=== PATIENT | male | born 1995 | race African-American/Black ===

== ENCOUNTER 2021-02-26 14:17 | Emergency (ER) | payer BC, SELFPAY ==
[2021-02-26 14:27] VITALS: BP 146/89; PULSE 85; RESP 16; TEMP 36.6; O2SAT 100
--- NOTE | 2021-02-26 15:04 | ED.URI ---
HPI - URI/Sore Throat General Chief Complaint: Upper Respiratory Infection Stated Complaint: sore throat Source: patient and RN notes reviewed Mode of arrival: ambulatory History of Present Illness HPI Narrative: This is a 25-year-old male that presented to urgent care today with complaints of a sore throat. According to patient his girlfriend's child was recently diagnosed with hand feet and mouth. Patient notes that he did have a fever of 100.6 with one episode of nausea body aches. Patient has been vaccinated. He took cold and flu medication to relieve his symptoms at home. The patient denies SOB, CP, palpitation, extremity numbness, lightheadedness, dizziness, constipation, diarrhea, chills, or fever. Strep negative patient is will be treated off her symptoms along MD elicited complaint: fever and sore throat Related Data Allergies Allergy/AdvReac Type Severity Reaction Status Date / Time No Known Allergies Allergy Unknown Verified 04/20/19 06:56 Review of Systems Review of Systems: A 14 organ system Review of Systems was performed and pertinent positives included in the HPI, otherwise remaining ROS is negative. [facility] Family History Family History (Updated 02/26/21 @ 15:07 by ТАТЬЯНА Stewart) Other Family history non-contributory Exam Narrative: GENERAL: This is a well-nourished, well-developed patient, in no apparent distress. HEAD: normocephalic, atraumatic. EYES: PERRL. Sclera clear/white. Vision is grossly intact. EARS: External ears normal, auditory canals clear and without drainage, TMs normal without perforation. Hearing grossly intact. NOSE: External nose normal with no obvious nasal discharge, nares without redness, no rhinorrhea. THROAT: Mucous membranes moist, posterior pharynx Pharyngeal erythema; palatal petechiae, enlarged tonsils NECK: Neck supple, non-tender without lymphadenopathy, masses or thyromegaly. CARDIOVASCULAR: Regular rate and rhythm without murmurs, gallops, or rubs. RESPIRATORY: Clear to auscultation. Breath sounds equal bilaterally. No wheezes, rales, or rhonchi. GASTROINTESTINAL: Abdomen soft, non-tender, nondistended. Bowel sounds are active. No hepato-splenomegaly, or palpable masses. No guarding. SKIN: warm, intact with no suspicious lesions or rash, good texture and turgor. NEURO: awake, alert, and oriented to person, place and time. There were no obvious focal neurologic abnormalities. Steady gait EXTREMITIES: Normal range of motion. No edema. No calf tenderness. Negative Homans sign bilaterally. BACK: Nontender without deformity or crepitance. No flank tenderness. Course Course Emergency Course: Patient discharged home with Augmentin and lidocaine rinse Vital Signs Vital signs: Vital Signs Temperature 97.9 F 02/26/21 14:27 Pulse Rate 85 02/26/21 14:27 Respiratory Rate 16 02/26/21 14:27 Blood Pressure 146/89 H 02/26/21 14:27 Pulse Oximetry 100 02/26/21 14:27 Temperature 97.9 F 02/26/21 14:27 Pulse Rate 85 02/26/21 14:27 Respiratory Rate 16 02/26/21 14:27 Blood Pressure 146/89 H 02/26/21 14:27 Pulse Oximetry 100 02/26/21 14:27 MDM - URI/Sore Throat Differential Diagnosis Differential diagnosis: Likely upper respiratory infection, otitis media, viral infection and pharyngitis Lab Data Attestation: I reviewed the patient's lab results. Labs: Strep Screen Presumptive Negative *(Reference Range: Negative)* Discharge Plan Discharge Clinical Impression: Pharyngitis Qualifiers: Pharyngitis/tonsillitis etiology: Coxsackie virus Qualified Code(s): B08.5 - Enteroviral vesicular pharyngitis Patient Disposition: Home, Self-Care Condition: Stable Instructions: Antibiotic Form, Pharyngitis (ED) Additional Instructions: -Eat things that are easy to swallow, like tea or soup, or popsicles to suck on. -Oral rinses such as: Salt water gargles and/or may use topical
== END 2021-02-26 15:07 | disposition home or self-care (01) ==
PROVIDERS: Emergency Provider Nurse Practitioner
DX: J02.9 Acute pharyngitis, unspecified (principal); B97.11 Coxsackievirus as the cause of diseases classified elsewhere
CPT/HCPCS: 87081; 87880; 99213; G0463

== ENCOUNTER 2021-02-27 03:29 | Emergency (ER) | payer BC, SELFPAY ==
[2021-02-27 03:37] VITALS: BP 155/84; PULSE 84; RESP 17; TEMP 37.1; O2SAT 99
[2021-02-27] MEDS: SODIUM CHLORIDE 0.9% IV 1,000 ML 999 ML IV CONT (04:30)
[2021-02-27] MEDS: KETOROLAC 15 MG/ML VIAL (*BKC) IV PUSH (04:31)
[2021-02-27] MEDS: DEXAMETHASONE SOD PHOS INJ 4 MG/ML VIAL 10 MG IV PUSH (04:31)
[2021-02-27 04:38] VITALS: BP 118/81; PULSE 80; RESP 16; O2SAT 97
--- NOTE | 2021-02-27 04:45 | ED.URI ---
HPI - URI/Sore Throat General Chief Complaint: Upper Respiratory Infection Stated Complaint: worsening pharyngitis Time Seen by Provider: 02/27/21 03:57 History of Present Illness HPI Narrative: Patient presents with sore throat. Patient presents sore throat for the past couple days getting progressively worse. States he has not been able to eat or drink anything due to the pain so he came in for evaluation. Reports his girlfriend kid who lives with him was diagnosed with wxhc-hmdl-acy-mouth disease. He reports he also has a rash on his hands and feet he had an associated fever a couple days ago which is now resolved. Related Data Allergies Allergy/AdvReac Type Severity Reaction Status Date / Time No Known Allergies Allergy Unknown Verified 02/27/21 03:44 Review of Systems Review of Systems: CONSTITUTIONAL: Reported resolved or fever EYES: Denies visual changes, redness, or discharge. ENT: Denies rhinorrhea, congestion, or otalgia. CARDIOVASCULAR: Denies chest pain, palpitations, or edema. RESPIRATORY: Denies cough or dyspnea. GASTROINTESTINAL: Denies abdominal pain, nausea, vomiting, or diarrhea. GENITOURINARY: Denies dysuria or hematuria. SKIN: Reports rash on hands and feet itching MUSCULOSKELETAL: Denies back pain, joint pain, or myalgia. NEUROLOGIC: Denies headache, numbness, dizziness, or weakness. PSYCHIATRIC: Denies anxiety or depression. All systems reviewed & are unremarkable except as noted in HPI and below PMFSH Family History Family History Other Family history non-contributory Exam Narrative: GENERAL: Well-appearing, well-nourished, and in no acute distress. HEAD: Normocephalic, atraumatic. EYES: PERRLA and EOMI. ENT: Nares clear, no rhinorrhea or epistaxis. Mucous membranes moist. Ulcerations with erythema in the posterior pharynx no uvula deviation NECK: Supple. No masses. No JVD CHEST: Clear to auscultation. No respiratory distress. No wheezes rales or rhonchi HEART: Regular rate and rhythm. No murmur heard. Normal peripheral pulses. EXTREMITIES: Normal range of motion. No edema. SKIN: Warm, dry, scant pustules noted on the hands and feet bilaterally NEURO: No focal deficits. Alert and oriented x3. PSYCH: Normal mood and affect. Course Reevaluation(s) Reevaluation #1: Patient reports feeling much improved still having like to eat and hydrate at home. Date: 02/27/21 Time: 06:07 Vital Signs Vital signs: Vital Signs Temperature 37.1 C 02/27/21 03:37 Pulse Rate 84 02/27/21 03:37 Respiratory Rate 17 02/27/21 03:37 Blood Pressure 155/84 H 02/27/21 03:37 Pulse Oximetry 99 02/27/21 03:37 Temperature 37.1 C 02/27/21 03:37 Pulse Rate 80 02/27/21 06:23 Respiratory Rate 16 02/27/21 06:23 Blood Pressure 116/71 02/27/21 06:23 Pulse Oximetry 97 02/27/21 06:23 MDM - URI/Sore Throat MDM Narrative Medical decision making narrative: H&P as above, vss, pt looks clinically well, exam with rash and ulceration in the oropharynx consistent with ynha-dueo-qfu-mouth disease, labs/img considered. symptomatic relief available as needed, patient was treated with fluids NSAIDs and steroids on reevaluation pt continues to looks clinically well reporting large improvement in symptoms. Suspect iuzz-kfhc-ucm-mouth disease, dns peritonsillar abscess, airway compromise, severe sepsis. plan to tx/monitor as op w/ pcm f/u findings/plan discussed with pt, pt agree/comfortable with plan, return precautions given Discharge Plan Discharge Clinical Impression: Hand, foot and mouth disease (HFMD) Instructions: Hand, Foot, and Mouth Disease (ED) Additional Instructions: Please return if your symptoms worsen or fail to improve. If you develop a fever, can not eat/drink anything or if you have any other concerns. Prescriptions: New prednisone 50 mg tablet 50 mg PO DAILY Qty: 4 RF: 0 No Action amoxicillin-pot clavulanate
[2021-02-27 06:23] VITALS: BP 116/71; PULSE 80; RESP 16; O2SAT 97
== END 2021-02-27 06:24 | disposition home or self-care (01) ==
PROVIDERS: Emergency Provider Emergency Medicine
DX: B08.4 Enteroviral vesicular stomatitis with exanthem (principal)
CPT/HCPCS: 96361; 96374; 96375; 99284; J1100; J1885; J7030

== ENCOUNTER 2021-03-02 15:17 | Emergency (ER) | payer BC, SELFPAY ==
[2021-03-02 16:05] VITALS: BP 129/85; PULSE 85; RESP 16; TEMP 35.9; O2SAT 100
--- NOTE | 2021-03-02 16:12 | ED.GENADULT ---
HPI - General Adult General Stated complaint: Work Note, Hands feet,Mouth Time Seen by Provider: 03/02/21 16:12 Source: patient and RN notes reviewed Mode of arrival: ambulatory Limitations: no limitations History of Present Illness HPI narrative: 25-year-old male presents to the [facility] without complaints but is looking for a work note. Was seen here on February 26, diagnosed with pharyngitis. Had to go to the ER on February 27 due to not being able to eat or drink, felt dehydrated at that time was diagnosed with ydba-miua-fht-mouth. States that he still does not feel completely normal with like a couple of days off of work. Is now able to eat or drink, is afebrile. Patient appears nontoxic. Related Data Allergies Allergy/AdvReac Type Severity Reaction Status Date / Time No Known Allergies Allergy Unknown Verified 02/27/21 03:44 Review of Systems Review of Systems: All systems reviewed & are unremarkable except as noted in HPI and below Constitutional: Constitutional: Reports no additional constitutional complaints, Denies chills and Denies fever(s) Eyes: Eyes: Reports no additional eye complaints ENT: Reports as per HPI Comments: Sores in his mouth Cardiovascular: Cardiovascular: Reports no additional cardiovascular complaints and Denies chest pain Respiratory: Respiratory: Reports no additional respiratory complaints, Denies cough and Denies dyspnea Gastrointestinal: Gastrointestinal: Reports no additional gastrointestinal complaints, Denies abdominal pain, Denies nausea and Denies vomiting Musculoskeletal: Musculoskeletal: Reports no additional musculoskeletal complaints Integumentary/Breasts: Skin/Breast: Reports as per HPI and Reports rash Comments: Rash to his hands and feet, plantar and palmar aspects Neurologic: Reports system reviewed and no additional complaints, except as documented Psychiatric: Psychiatric: Reports no additional psychiatric complaints Allergic/Immunologic: Allergic/Immunologic: Reports no additional allergic/immunologic complaints [facility] Past Medical History Medical History (Updated 03/02/21 @ 17:49 by Laura Aldridge) No significant medical problems Surgical History Surgical History (Updated 03/02/21 @ 17:49 by Laura Aldridge) No significant past surgical history Family History Family History Other Family history non-contributory Social History Social History (Updated 03/02/21 @ 17:49 by Larua Aldridge) Living arrangements: with family Occupation/Education: occupation Additional occupation/education comments: [employer] Comments At the time of my signature, I reviewed and agree with the nursing past medical, surgical, social, and family history. There is no relevant family history pertinent to the patient complaint. Exam Const: General: healthy appearing, no acute distress and alert Nutritional Appearance: well nourished Orientation/consciousness: patient oriented x3 Limitations: no limitations HENMT: Head: normal to inspection Ears: external ears normal, TM's normal bilaterally and EAC's normal Other: Blisters throughout the mouth and tongue posterior pharynx. Eyes: Pupils: Equal, round and reactive pupils present Neck: Neck: normal visual inspection, no lymphadenopathy and no meningeal signs Chest: Chest palpation & inspection: normal inspection of the chest Resp: Effort & Inspection: normal respiratory effort Auscultation: clear to auscultation bilaterally Cardio: Rate: regular rate Rhythm: regular rhythm Back/Spine/Pelvis: Back: no CVA tenderness Skin: General skin exam: normal color Rashes: no rashes Other: Blistery rash palmar aspect of hand Neuro: General: patient oriented x3, moves all extremities, no meningeal signs and no focal motor deficits Speech: normal speech Gait exam (Neuro): Normal gait present Extrem: General: normal to inspection Psych: Appearance: grossly nan
== END 2021-03-02 16:34 | disposition home or self-care (01) ==
PROVIDERS: Emergency Provider Nurse Practitioner
DX: B08.4 Enteroviral vesicular stomatitis with exanthem (principal)
CPT/HCPCS: 99211; G0463

== ENCOUNTER 2021-12-08 17:16 | Emergency (ER) | payer BC, SELFPAY ==
[2021-12-08 17:22] VITALS: BP 155/95; PULSE 106; RESP 18; TEMP 36.3; O2SAT 100
--- NOTE | 2021-12-08 17:36 | ED.LOWEXIN ---
HPI - Extremity Injury (Lower) General Chief Complaint: Extremity Problem,Nontraumatic Stated Complaint: left leg pain Time Seen by Provider: 12/08/21 17:36 Source: patient, RN notes reviewed and old records reviewed Mode of arrival: ambulatory Limitations: no limitations History of Present Illness HPI Narrative: 26-year-old male presents to the [facility] with complaints of left leg pain since waking up this morning. Denies any injuries. No swelling, redness. Patient was concerned when his left leg started going numb, of been intermittent. Denies any back pain or abdominal pain. Patient states he works in the heat and does not drink enough water. Related Data Home Medications Medication Instructions Recorded Confirmed No Home Medications 12/08/21 12/08/21 Allergies Allergy/AdvReac Type Severity Reaction Status Date / Time No Known Allergies Allergy Unknown Verified 12/08/21 17:25 Review of Systems Review of Systems: All systems reviewed & are unremarkable except as noted in HPI and below Constitutional: Constitutional: Reports no additional constitutional complaints, Denies chills and Denies fever(s) Eyes: Eyes: Reports no additional eye complaints ENT: Reports system reviewed and no additional complaints, except as documented Cardiovascular: Cardiovascular: Reports no additional cardiovascular complaints Respiratory: Respiratory: Reports no additional respiratory complaints Gastrointestinal: Gastrointestinal: Reports no additional gastrointestinal complaints Musculoskeletal: Musculoskeletal: Reports as per HPI and Reports muscle cramps (Left leg) Integumentary/Breasts: Skin/Breast: Reports system reviewed and no additional complaints, except as docu Neurologic: Reports system reviewed and no additional complaints, except as documented Psychiatric: Psychiatric: Reports no additional psychiatric complaints Allergic/Immunologic: Allergic/Immunologic: Reports no additional allergic/immunologic complaints [facility] Past Medical History Medical History (Updated 12/08/21 @ 17:46 by Laura Aldridge APRN) No significant medical problems Surgical History Surgical History No significant past surgical history Family History Family History Other Family history non-contributory Social History Social History Additional occupation/education comments: [employer] Comments At the time of my signature, I reviewed and agree with the nursing past medical, surgical, social, and family history. There is no relevant family history pertinent to the patient complaint. Exam Const: General: healthy appearing, no acute distress and alert Nutritional Appearance: well nourished Orientation/consciousness: patient oriented x3 Limitations: no limitations HENMT: Head: normal to inspection Ears: external ears normal Eyes: General: appearance normal, both eyes and all related structures Pupils: Equal, round and reactive pupils present Neck: Neck: normal visual inspection, no lymphadenopathy and no meningeal signs Chest: Chest palpation & inspection: normal inspection of the chest Resp: Effort & Inspection: normal respiratory effort and no use of accessory muscles Auscultation: clear to auscultation bilaterally, no crackles, no rales, no rhonchi and no wheezes Cardio: Rate: regular rate Rhythm: regular rhythm GI: GI Palp: Yes Soft to palpation and No Tenderness to palpation present (GI) Back/Spine/Pelvis: Cervical Spine: normal cervical lordosis Thoracic/Lumbar Spine: thoracic and lumbar spine normal to inspection Skin: General skin exam: normal color Rashes: no rashes Wounds: no wounds Neuro: General: patient oriented x3, moves all extremities, no meningeal signs and no focal motor deficits Cranial nerves: Yes Equal, round and reactive pupil
== END 2021-12-08 17:53 | disposition home or self-care (01) ==
PROVIDERS: Emergency Provider Nurse Practitioner
DX: M79.662 Pain in left lower leg (principal)
CPT/HCPCS: 99211; G0463

== ENCOUNTER 2022-06-27 13:36 | Emergency (ER) | payer BC, SELFPAY ==
[2022-06-27 13:59] VITALS: BP 115/74; PULSE 115; RESP 18; TEMP 37.2; O2SAT 99
--- NOTE | 2022-06-27 14:26 | ED.NAVMDI ---
HPI - Nausea/Vomiting/Diarrhea General Chief complaint: Nausea/Vomiting/Diarrhea Stated complaint: upper resp Time Seen by Provider: 06/27/22 13:48 History of Present Illness HPI Narrative: 26-year-old male presented emergency room complaints of nausea vomiting and diarrhea since yesterday. Also complaining of lower abdominal cramping reports multiple episodes of nonbilious nonbloody vomiting and loose stools. Patient also endorses diffuse back pain. Denies any injury or trauma. Denies fevers. Related Data Allergies Allergy/AdvReac Type Severity Reaction Status Date / Time No Known Allergies Allergy Unknown Verified 12/08/21 17:25 Review of Systems Review of Systems: CONSTITUTIONAL: Denies fever, chills, or sweats. EYES: Denies visual changes, redness, or discharge. ENT: Denies rhinorrhea, congestion, sore throat, or otalgia. CARDIOVASCULAR: Denies chest pain, palpitations, or edema. RESPIRATORY: Denies cough or dyspnea. GASTROINTESTINAL: Reports lower abdominal pain, nausea, vomiting, and diarrhea. GENITOURINARY: Denies dysuria or hematuria. SKIN: Denies rash or itching. MUSCULOSKELETAL: Denies back pain, joint pain, or myalgia. NEUROLOGIC: Denies headache, numbness, dizziness, or weakness. PSYCHIATRIC: Denies anxiety or depression. [facility] Past Medical History Medical History No significant medical problems Surgical History Surgical History No significant past surgical history Family History Family History Other Family history non-contributory Social History Social History Additional occupation/education comments: [employer] Exam Narrative: GENERAL: Well-appearing, well-nourished, no physical limitations, and in no acute distress. HEAD: Normocephalic, atraumatic. EYES: Conjunctivae normal, PERRLA and EOMI. CHEST: Clear to auscultation. No respiratory distress. No wheezes rales or rhonchi. HEART: Regular rate and rhythm. No murmur heard. Normal peripheral pulses. ABDOMEN: Soft, lower abdominal tenderness, nondistended, normal active bowel sounds. Negative heel strike. Negative psoas and obturator signs BACK: No CVA tenderness; No cervical/thoracic/lumbar tenderness, step-offs, bony abnormality; FROM EXTREMITIES: Normal range of motion. No edema. No clubbing or cyanosis SKIN: Warm, dry, no rash. No noted wounds NEURO: No focal deficits. Alert and oriented x3. MAEW. CN's II-XI intact bilaterally, normal gait PSYCH: Cooperative. Normal mood and affect. Course Course Emergency Course: 1600: On reexamination patient states his symptoms have resolved. Vital Signs Vital signs: Vital Signs Temperature 37.2 C 06/27/22 13:59 Pulse Rate 115 H 06/27/22 13:59 Respiratory Rate 18 06/27/22 13:59 Blood Pressure 115/74 06/27/22 13:59 Pulse Oximetry 99 06/27/22 13:59 Oxygen Delivery Room Air 06/27/22 13:59 Temperature 37.2 C 06/27/22 13:59 Pulse Rate 115 H 06/27/22 13:59 Respiratory Rate 18 06/27/22 13:59 Blood Pressure 115/74 06/27/22 13:59 Pulse Oximetry 99 06/27/22 13:59 Oxygen Delivery Room Air 06/27/22 13:59 MDM - Nausea/Vomiting/Diarrhea Lab Data 06/27/22 14:23 06/27/22 14:23 Labs: Lab Results 06/27/22 06/27/22 06/27/22 Range/Units 14:07 14:23 14:23 WBC 7.8 (4.5-10.0) K/mm3 RBC 5.49 (4.6-6.20) M/mm3 Hgb 16.3 (14.0-18.0) g/dL Hct 49.5 (42.0-52.0) % MCV 90.2 (80-100) fl MCH 29.7 (26-34) pg MCHC 32.9 (32-36) g/dl RDW 12.7 (11.5-14.5) % Plt Count 170 (150-375) k/mm3 MPV 11.4 H (7.4-10.4) fl Immature Gran % (Auto) 0.6 H (0-0.5) % Neut % (Auto) 87.5 H (45.5-73.1) % Lymph % (Auto) 4.4 L (18.3-44.2) % [place] % (Auto) 7.0 (2.6-8.5) % Eos %
[2022-06-27 14:48] LABS: Basophils Percent Auto 0.1 % (0.2-1.2); Eosinophils Percent Auto 0.4 % (0-4.4); Hematocrit 49.5 % (42.0-52.0); Hemoglobin 16.3 g/dL (14.0-18.0); Immature Granulocyte Absolute 0.05 K/mm3 (0.00-0.031); Immature Granulocyte Percent A 0.6 % (0-0.5); Lymphocytes Absolute Auto 0.34 K/mm3 (0.9-3.2); Lymphocytes Percent Auto 4.4 % (18.3-44.2); Mean Corpuscular HGB Conc 32.9 g/dl (32-36); Mean Corpuscular Hemoglobin 29.7 pg (26-34); Mean Corpuscular Volume 90.2 fl (80-100); Mean Platelet Volume 11.4 fl (7.4-10.4); Monocytes Absolute Auto 0.6 K/mm3 (0.1-0.6); Neutrophils Absolute Auto 6.8 K/mm3 (1.3-6.7); Neutrophils Percent Auto 87.5 % (45.5-73.1); Platelet Count Result 170 k/mm3 (150-375); Red Blood Count 5.49 M/mm3 (4.6-6.20); Red Cell Distribution Width 12.7 % (11.5-14.5); White Blood Count 7.8 K/mm3 (4.5-10.0)
[2022-06-27 14:56] LABS: Influenza A QL RT-PCR Negative (Negative); Influenza B QL RT-PCR Negative (Negative); RSV RNA, RT-PCR Negative (Negative); SARS-CoV-2 RNA PCR Negative
[2022-06-27 14:58] LABS: Alanine Aminotransferase 34 U/L (6-50); Albumin Level 4.9 g/dL (3.5-5.1); Alkaline Phosphatase 53 U/L (38-126); Anion Gap 11 mmol/L (8-16); Aspartate Amino Transferase 28 U/L (17-59); Bilirubin,Total 1.1 mg/dL (0.2-1.3); Blood Urea Nitrogen 14 mg/dL (9-20); Calcium 9.5 mg/dL (8.4-10.2); Carbon Dioxide 26 mmol/L (22-30); Chloride 105 mmol/L (98-107); Estimated CRCL calculation 109 ml/min; Estimated Glomerular Filt Rate > 60; Glucose 123 mg/dL (65-110); Lactic Acid Reflex 2.3 mmol/L (0.7-2.0); Lipase 43 U/L (23-300); Potassium 3.7 mmol/L (3.4-5.0); Sodium 142 mmol/L (137-145)
[2022-06-27] MEDS: KETOROLAC 30 MG/ML VIAL (*BKC) IV PUSH (15:00)
[2022-06-27] MEDS: SODIUM CHLORIDE 0.9% IV 1,000 ML 999 ML IV CONT (15:01)
[2022-06-27] MEDS: ONDANSETRON INJ 4 MG/2 ML VIAL IV PUSH (15:01)
[2022-06-27 17:46] LABS: Reflex Lactic Acid Yes or No Add Lactic
--- NOTE | 2022-07-06 12:39 | PC.NURSE ---
LATE ENTRY This note is being entered to document information to the patient's record. The following information was omitted on [06/27/22], by [Vidhi Aaron Rn]. NS stop time 1600
--- NOTE | 2022-07-06 16:36 | PC.NURSE ---
LATE ENTRY This note is being entered to document information to the patient's record. The following information was omitted on 06/29/22, by [Mckenzie Garcia] NORMAL SALINE STOPPED WITH ZERO LEFT IN CONTAINER
== END 2022-06-27 16:30 | disposition home or self-care (01) ==
PROVIDERS: Emergency Provider Nurse Practitioner Family
DX: K52.9 Noninfective gastroenteritis and colitis, unspecified (principal); Z20.822 Contact with and (suspected) exposure to COVID-19
CPT/HCPCS: 36415; 80053; 83605; 83690; 85025; 87637; 96361; 96374; 96375; 99284; J1885; J2405; J7030

== ENCOUNTER 2023-04-02 00:59 | Emergency (ER) | payer BC, SELFPAY ==
[2023-04-02 01:02] VITALS: BP 138/82; PULSE 81; RESP 18; TEMP 36.7; O2SAT 100
--- NOTE | 2023-04-02 01:04 | ED.GENADULT ---
HPI - General Adult General Chief complaint: Unspecified Stated complaint: sore throat Time Seen by Provider: 04/02/23 01:02 Source: patient Mode of arrival: ambulatory Limitations: no limitations History of Present Illness HPI narrative: patient is a pleasant 27-year-old male who presents emergency department today ambulatory with steady gait for evaluation of a sore throat that started last night. Patient states that his daughter recently had ghxs-yutz-aqfuo. He states that his right ear hurts worse than the left. Denies fever or chills. Denies any cough, nausea, vomiting, headache, dizziness. He denies having any rash. Related Data Allergies Allergy/AdvReac Type Severity Reaction Status Date / Time No Known Allergies Allergy Unknown Verified 12/08/21 17:25 Review of Systems Review of Systems: CONSTITUTIONAL: Denies fever, chills, or sweats. EYES: Denies visual changes, redness, or discharge. ENT: +sore throat, right ear pain. Denies rhinorrhea, congestion. CARDIOVASCULAR: Denies chest pain, palpitations, or edema. RESPIRATORY: Denies cough or dyspnea. GASTROINTESTINAL: Denies abdominal pain, nausea, vomiting, or diarrhea. GENITOURINARY: Denies dysuria or hematuria. SKIN: Denies rash or itching. MUSCULOSKELETAL: Denies back pain, joint pain, or myalgia. NEUROLOGIC: Denies headache, numbness, or weakness. PSYCHIATRIC: Denies anxiety or depression. All systems reviewed & are unremarkable except as noted in HPI and below PMFSH Past Medical History Medical History No significant medical problems Surgical History Surgical History No significant past surgical history Family History Family History Other Family history non-contributory Social History Social History Living arrangements: with family Occupation/Education: occupation Additional occupation/education comments: [employer] Exam Narrative: GENERAL: Well-appearing, well-nourished, and in no acute distress. HEAD: Normocephalic, atraumatic. EYES: PERRLA and EOMI. ENT: Nares clear, no rhinorrhea or epistaxis. posterior oropharyngeal erythema/swelling. tonsillar swelling R>L. there are white lesions/sores noted to right tonsil. controlling secretions. swallowing with ease. no hot potato voice. no lesions noted to the tongue/lips/palate. bilateral ear fluid level noted and fullnes-no bulging TM or perforation noted. NECK: Supple. CHEST: Clear to auscultation. No respiratory distress. HEART: Regular rate and rhythm. No murmur heard. Normal peripheral pulses. EXTREMITIES: Normal range of motion. No edema. SKIN: Warm, dry, no rash. NEURO: No focal deficits. Alert and oriented x3. CN II-XII grossly intact PSYCH: Normal mood and affect. Course Vital Signs Vital signs: Vital Signs Temperature 98.1 F 04/02/23 01:02 Pulse Rate 81 04/02/23 01:02 Respiratory Rate 18 04/02/23 01:02 Blood Pressure 138/82 04/02/23 01:02 Pulse Oximetry 100 04/02/23 01:02 Oxygen Delivery Room Air 04/02/23 01:02 Temperature 98.1 F 04/02/23 01:02 Pulse Rate 81 04/02/23 01:02 Respiratory Rate 18 04/02/23 01:02 Blood Pressure 138/82 04/02/23 01:02 Pulse Oximetry 100 04/02/23 01:02 Oxygen Delivery Room Air 04/02/23 01:02 Medical Decision Making MDM Narrative Medical decision making narrative: presents for sore throat, daughter with HFM. will obtain rapid strep however to ensure not bacterial source. negative strep. will dc with magic mouth wash. discussed supportive care measures for pain. non-toxic. stable discharge exam. strict return precautions given.patient verbalized an understanding. he will f/u as needed. Differential Diagnosis Differential Diagnosis: viral syndrome, HFM, strep throat, V
[2023-04-02] MEDS: LIDOCAINE HCL 2% VISC SOLN 15 ML UDC PO (01:23)
[2023-04-02 01:56] LABS: Strep Group A RT-PCR NOT DETECTED (Negative)
[2023-04-02 02:07] VITALS: BP 130/76; PULSE 82; RESP 15; O2SAT 100
== END 2023-04-02 02:08 | disposition home or self-care (01) ==
PROVIDERS: Emergency Provider Nurse Practitioner
DX: J02.9 Acute pharyngitis, unspecified (principal); B08.4 Enteroviral vesicular stomatitis with exanthem; H92.01 Otalgia, right ear
CPT/HCPCS: 87651; 99283